=== PATIENT | male | born 1950 | race Caucasian/White ===

== ENCOUNTER 2017-08-10 19:17 | Observation (INO) | payer MEDICARE ==
[2017-08-10] MEDS ORDERED: Sodium Chloride 0.9% 1,000 ML IV ONE ×3 (19:46→22:37)
--- NOTE | 2017-08-10 20:00 | EDM.PDOC ---
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 after word he went to a [place] with his brother to plant [place] he remembers standing and being dizzy, then remembers lying on the ground BP 73/38 by EMS, then 90/50 by EMS after 1 liter, BP 106/56 here labs neg except for BUN 19, inc'd LFTs and ethanol 210, EKG with SR 90, no acute ST changes, no comparison no pain, no GARCIA, no f/c/d has not seen PCP Dr Egan in several years - Related Data Allergies Allergy/AdvReac Type Severity Reaction Status Date / Time No Known Allergies Allergy Verified 08/10/17 19:48 Home Meds: Home Meds NK [No Known Home Meds] 08/10/17 [History] ED ROS GENERAL - Review of Systems Review Of Systems: See Below Constitutional: Reports: Weakness HEENT: Reports: No Symptoms Respiratory: Reports: No Symptoms Cardiovascular: Reports: No Symptoms. Denies: Chest Pain Endocrine: Reports: No Symptoms GI/Abdominal: Reports: No Symptoms. Denies: Abdominal Pain, Nausea, Vomiting : Reports: No Symptoms Musculoskeletal: Reports: No Symptoms Skin: Reports: No Symptoms Neurological: Reports: Dizziness Psychiatric: Reports: No Symptoms Hematologic/Lymphatic: Reports: No Symptoms Immunologic: Reports: No Symptoms - Physical Exam Exam: See Below Exam Limited By: No Limitations General Appearance: Alert, WD/WN, No Apparent Distress Nose: Normal Inspection, Normal Mucosa, No Blood Throat/Mouth: Normal Inspection, Normal Lips, Normal Teeth, Normal Voice, No Airway Compromise Head Exam: Atraumatic, Normocephalic Neck: Normal Inspection, Supple, Non-Tender, Full Range of Motion Respiratory/Chest: No Respiratory Distress, Lungs Clear, Normal Breath Sounds, No Accessory Muscle Use, Chest Non-Tender Cardiovascular: Regular Rate, Rhythm, No Gallop, No Rub, Other (2/6 RON at LSB, quiet precordium) GI/Abdominal: Soft, Non-Tender, No Distention Neuro Exam (Abbreviated): Alert, Oriented, CN II-XII Intact, Normal Cognition, No Motor/Sensory Deficits Back Exam: Normal Inspection, Full Range of Motion, NT Extremities: Normal Inspection, Normal Range of Motion, Non-Tender, Normal Capillary Refill, Other (trace edema b/l) Psychiatric: Normal Affect, Normal Mood Skin Exam: Warm, Dry, Intact, Normal Color, No Rash Course - Vital Signs Last Recorded V/S: Last Vital Signs Temp 36.8 C 08/11/17 04:00 Pulse 88 08/11/17 04:00 Resp 18 08/11/17 04:00 BP 158/97 H 08/11/17 04:00 Pulse Ox 97 08/11/17 04:00 Orthostatic Blood Pressure [ 124/61 Standing] Orthostatic Blood Pressure [ 132/69 Sitting] Orthostatic Blood Pressure [ 121/54 Supine] - Orders/Labs/Meds Orders: Active Orders 24 hr Category Date Time Status UA W/MICROSCOPIC [URIN] Stat Lab 08/11/17 04:55 Ordered EKG 12 Lead [EK] Routine Ther 08/10/17 19:46 Ordered Medication Orders Acetaminophen (Tylenol) 650 mg PO Q4H PRN PRN Reason: Pain (Mild 1-3)/fever Dextrose/Sodium Chloride (Dextrose 5%-1/2 Ns) 1,000 mls @ 125 mls/hr IV ASDIRECTED [facility] Last Admin: 08/10/17 23:54 Dose: 125 mls/hr Ibuprofen (Motrin) 400 mg PO Q6H PRN PRN Reason: Pain (mild 1-3) Magnesium Hydroxide (Milk Of Magnesia) 30 ml PO Q12H PRN PRN Reason: Constipation Ondansetron HCl (Zofran) 4 mg IV Q4H PRN PRN Reason: Nausea/Vomiting Labs: Laboratory Tests 08/10/17 08/10/17 08/10/17 Range/Units 19:55 19:55 19:55 WBC 3.5 L (4.5-12.0) X10-3/uL RBC 4.60 (4.30-5.75) x10(6)uL Hgb 14.9 (11.5-15.5) g/dL Hct 44.1 (30.0-51.3) % MCV 95.9 (80-96) fL MCH 32.4 (27.7-33.6) pg MCHC 33.8 (32.2-35.4) g/dL RDW 13.8 (11.5-15.5) % Plt Count 83 L (125-369) X10(3)uL MPV 9.6 (7.4-10.4) fL Neut % (Auto) 59.4 (46-82) % Lymph % (Auto) 22.8 (13-37) % [place] % (Auto) 12.0 (4-12) % Eos % (Auto) 4 (1.0-5.0) % Baso % (Auto) 2 (0-2) % Neut # (Auto) 2.1 (1.6-8.3) # Lymph # (Auto) 0.8 (0.6-5.0) # [place] # (Auto) 0.4 (0.0-1.3) # Eos # (Auto) 0.1 (0.0-0.8) # Baso # (Auto) 0.1 (0.0-0.2) # Sodium 142 (135-145) mmol/L Potassium 3.9 (3.5-5.3) mmol/L Chloride 103 (100-110) mmol/L Carbon Dioxide 22 (21-32) mmol/L BUN 19 H (7-18) mg/dL Creatinine 1.0 (0.70-1.30) mg/dL Est Cr Clr Drug Dosing 82.12 mL/min Estimated GFR (MDRD) > 60 (>60) BUN/Creatinine Ratio 19.0 (9-20) Glucose 83 (80-116) mg/dL Calcium 8.8 (8.6-10.2) mg/dL Magnesium 1.8 (1.8-2.5) mg/dL Total Bilirubin 0.6 (0.1-1.3) mg/dL AST 117 H (5-25) IU/L ALT 96 H (12-36) U/L Alkaline Phosphatase 60 (56-112) IU/L Troponin I < 0.017 L (<0.017-0.056) ng/mL C-Reactive Protein 0.2 L (0.5-0.9) mg/dL Total Protein 6.9 (6.0-8.0) g/dL Albumin 3.9 (3.2-4.6) g/dL Globulin 3.0 g/dL Albumin/Globulin Ratio 1.3 TSH, Ultra Sensitive 4.43 H (0.36-3.74) IU/mL Ethyl Alcohol 0.21 H* (<0.03) % Meds: Medications Generic Name Dose Route Start Last Admin Trade Name Freq PRN Reason Stop Dose Admin Acetaminophen 650 mg 08/10/17 23:03 Tylenol PO Q4H PRN Pain (Mild 1-3)/fever Dextrose/Sodium Chloride 1,000 mls @ 125 mls/hr 08/10/17 23:15 08/10/17 23:54 Dextrose 5%-1/2 Ns IV 125 mls/hr ASDIRECTED [facility] Administration Ibuprofen 400 mg 08/10/17 23:03 Motrin PO Q6H PRN Pain (mild 1-3) Magnesium Hydroxide 30 ml 08/10/17 23:03 Milk Of Magnesia PO Q12H PRN Constipation Ondansetron HCl 4 mg 08/10/17 23:03 Zofran IV Q4H PRN Nausea/Vomiting Discontinued Medications Generic Name Dose Route Start Last Admin Trade Name Freq PRN Reason Stop Dose Admin Sodium Chloride 1,000 mls @ 999 mls/hr 08/10/17 19:46 08/10/17 20:06 Normal Saline IV 08/10/17 20:46 999 mls/hr .BOLUS ONE Administration Sodium Chloride 1,000 mls @ 999 mls/hr 08/10/17 20:49 08/10/17 21:20 Normal Saline IV 08/10/17 21:49 999 mls/hr .BOLUS ONE Administration Sodium Chloride 1,000 mls @ 999 mls/hr 08/10/17 22:37 08/10/17 22:30 Normal Saline IV 08/10/17 23:37 999 mls/hr .BOLUS ONE Administration - Re-Assessments/Exams Free Text/Narrative Re-Assessment/Exam: 08/10/17 22:39 pt with no urine after 3 liter NS, no urge to go not orthostatic after 2.5 liters, BP 124/57, still with inc'd pulse pressure inc'd LFTs c/w alcoholic hepatitis EtOH 210 inc'd BUN c/w dehydration is showing unifocal PVBs after 3 liters NS that were not there before EKG with borderline t wave abnormalities will r/o for GA and continue to monitor admit to hospital for further w/u Departure - Departure Time of Disposition: 22:45 Disposition: Refer to Observation Condition: Fair Clinical Impression: Vasovagal syncope, Hypotension, Dehydration, Elevated liver function tests, Acute alcohol intoxication, Poor nutrition, Abnormal EKG, Premature ventricular beat - Discharge Information - My Orders Last 24 Hours: My Active Orders 08/10/17 19:46 EKG 12 Lead [EK] Routine 08/11/17 04:55 UA W/MICROSCOPIC [URIN] Stat - Assessment/Plan Last 24 Hours: My Active Orders 08/10/17 19:46 EKG 12 Lead [EK] Routine 08/11/17 04:55 UA W/MICROSCOPIC [URIN] Stat
[2017-08-10] MEDS ORDERED: Ondansetron 4 MG/2 ML SDV IV PRN (23:03)
[2017-08-10] MEDS ORDERED: Ibuprofen 400 MG Tab PO PRN (23:03)
[2017-08-10] MEDS ORDERED: Magnesium Hydroxide 400 MG/5 ML Susp 30 ML Cup PO PRN (23:03)
[2017-08-10] MEDS ORDERED: Acetaminophen 325 MG Tab PO PRN (23:03)
[2017-08-10] MEDS: Dextrose 5%-0.45% NaCl 1,000 ML IV SCH (23:54)
[2017-08-11] MEDS: Dextrose 5%-0.45% NaCl 1,000 ML IV SCH (08:17)
--- NOTE | 2017-08-11 09:22 | PCM.HP ---
H&P History of Present Illness - General Date of Service: 08/11/17 Admit Problem/Dx: Admission Diagnosis/Problem Admission Diagnosis/Problem Syncope - History of Present Illness Initial Comments - Free Text/Narative: was admitted yesterday for syncope. He complains of no chest pain or headache or shortness of breath this morning. According to him he had eaten nor drank nothing yesterday except alcohol while helping his brother working into [employer]. He remembers getting up walking and then fell and was dizzy and does not remember much else. Upon arrival his blood pressure recorded by the EMS was 73 systolic he was admitted for observation and rehydration with the diagnosis of dehydration alcohol intoxication and syncope. He states that is previously healthy and has not seen his PCP Dr. Caryl Egan for several years Hasn't been taking prescription medications. He chews [place] but does not smoke. No recent surgeries. - Related Data Allergies/Adverse Reactions: Allergies Allergy/AdvReac Type Severity Reaction Status Date / Time No Known Allergies Allergy Verified 08/10/17 19:48 Home Medications: Home Meds NK [No Known Home Meds] 08/10/17 [History] Past Medical History - Past Health History Medical/Surgical History: Denies Medical/Surgical History Social & Family History - Family History Family Medical History: Noncontributory - Tobacco Use Smoking Status *Q: Never Smoker - Caffeine Use Caffeine Use: Reports: Coffee - Alcohol Use Days Per Week of Alcohol Use: 3 Number of Drinks Per Day: 6 Total Drinks Per Week: 18 Date of Last Drink: 08/11/17 - Recreational Drug Use Recreational Drug Use: No H&P Review of Systems - Review of Systems: Review Of Systems: ROS reveals no pertinent complaints other than HPI. Exam - Exam Exam: See Below - Vital Signs Vital Signs: Last Vital Signs Temp 98.5 F 08/11/17 07:57 Pulse 85 08/11/17 07:57 Resp 18 08/11/17 07:57 BP 107/56 L 08/11/17 07:57 Pulse Ox 97 08/11/17 07:57 Orthostatic Blood Pressure [ 124/61 Standing] Orthostatic Blood Pressure [ 132/69 Sitting] Orthostatic Blood Pressure [ 121/54 Supine] Weight: 110.818 kg - Exam General: Alert, Oriented, 4 HEENT: PERRLA, Hearing Intact, Mucosa Moist & [place], Nares Patent, Normal Nasal Septum, Posterior Pharynx Clear, Conjunctiva Clear, EOMI, EACs Clear, TMs Clear Neck: Supple, Trachea Midline, 2 Lungs: Clear to Auscultation, Normal Respiratory Effort Cardiovascular: Regular Rate, Regular Rhythm GI/Abdominal Exam: Normal Bowel Sounds, Soft, Non-Tender, No Organomegaly, No Distention, No Abnormal Bruit, No Mass, Pelvis Stable (Male) Exam: No Hernia, Normal Inspection, Normal Prostate, Circumcised Rectal (Males) Exam: Normal Exam, Normal Rectal Tone, Prostate Normal Back Exam: Normal Inspection, Full Range of Motion, NT Extremities: Normal Inspection, Normal Range of Motion, Non-Tender, No Pedal Edema, Normal Capillary Refill Skin: Warm, Dry, Intact Neurological: Cranial Nerves Intact, Reflexes Equal Bilateral Neuro Extensive - Mental Status: Alert, Oriented x3, Normal Mood/Affect, Normal Cognition Neuro Extensive - Motor, Sensory, Reflexes: CN II-XII Intact, Normal Gait, Normal Reflexes Psychiatric: Alert, Normal Affect, Normal Mood - Patient Data Lab Results Last 24 hrs: Laboratory Results - last 24 hr 08/10/17 08/10/17 08/10/17 Range/Units 19:55 19:55 19:55 WBC 3.5 L (4.5-12.0) X10-3/uL RBC 4.60 (4.30-5.75) x10(6)uL Hgb 14.9 (11.5-15.5) g/dL Hct 44.1 (30.0-51.3) % MCV 95.9 (80-96) fL MCH 32.4 (27.7-33.6) pg MCHC 33.8 (32.2-35.4) g/dL RDW 13.8 (11.5-15.5) % Plt Count 83 L (125-369) X10(3)uL MPV 9.6 (7.4-10.4) fL Neut % (Auto) 59.4 (46-82) % Lymph % (Auto) 22.8 (13-37) % [place] % (Auto) 12.0 (4-12) % Eos % (Auto) 4 (1.0-5.0) % Baso % (Auto) 2 (0-2) % Neut # (Auto) 2.1 (1.6-8.3) # Lymph # (Auto) 0.8 (0.6-5.0) # [place] # (Auto) 0.4 (0.0-1.3) # Eos # (Auto) 0.1 (0.0-0.8) # Baso # (Auto) 0.1 (0.0-0.2) # D-Dimer, Quantitative (0.0-0.59) mg/LFEU Sodium 142 (135-145) mmol/L Potassium 3.9 (3.5-5.3) mmol/L Chloride 103 (100-110) mmol/L Carbon Dioxide 22 (21-32) mmol/L BUN 19 H (7-18) mg/dL Creatinine 1.0 (0.70-1.30) mg/dL Est Cr Clr Drug Dosing 82.12 mL/min Estimated GFR (MDRD) > 60 (>60) BUN/Creatinine Ratio 19.0 (9-20) Glucose 83 (80-116) mg/dL Hemoglobin A1c (4.5-6.2) % Calcium 8.8 (8.6-10.2) mg/dL Magnesium 1.8 (1.8-2.5) mg/dL Total Bilirubin 0.6 (0.1-1.3) mg/dL AST 117 H (5-25) IU/L ALT 96 H (12-36) U/L Alkaline Phosphatase 60 (56-112) IU/L Troponin I < 0.017 L (<0.017-0.056) ng/mL C-Reactive Protein 0.2 L (0.5-0.9) mg/dL NT-Pro-B Natriuret Pep (<=125) pg/mL Total Protein 6.9 (6.0-8.0) g/dL Albumin 3.9 (3.2-4.6) g/dL Globulin 3.0 g/dL Albumin/Globulin Ratio 1.3 TSH, Ultra Sensitive 4.43 H (0.36-3.74) IU/mL Urine Color (YELLOW) Urine Appearance (CLEAR) Urine pH (5.0-6.5) Ur Specific [place] (1.010-1.025) Urine Protein (NEGATIVE) mg/dL Urine Glucose (UA) (NEGATIVE) mg/dL Urine Ketones (NEGATIVE) mg/dL Urine Occult Blood (NEGATIVE) Urine Nitrite (NEGATIVE) Urine Bilirubin (NEGATIVE) Urine Urobilinogen (NEGATIVE) mg/dL Ur Leukocyte Esterase (NEGATIVE) Urine RBC (0) Urine WBC (0) Ur Squamous Epith Cells (NS,R,O) Urine Bacteria (NS) Ethyl Alcohol 0.21 H* (<0.03) % 08/10/17 08/10/17 08/11/17 Range/Units 22:45 22:45 04:55 WBC (4.5-12.0) X10-3/uL RBC (4.30-5.75) x10(6)uL Hgb (11.5-15.5) g/dL Hct (30.0-51.3) % MCV (80-96) fL MCH (27.7-33.6) pg MCHC (32.2-35.4) g/dL RDW (11.5-15.5) % Plt Count (125-369) X10(3)uL MPV (7.4-10.4) fL Neut % (Auto) (46-82) % Lymph % (Auto) (13-37) % [place] % (Auto) (4-12) % Eos % (Auto) (1.0-5.0) % Baso % (Auto) (0-2) % Neut # (Auto) (1.6-8.3) # Lymph # (Auto) (0.6-5.0) # [place] # (Auto) (0.0-1.3) # Eos # (Auto) (0.0-0.8) # Baso # (Auto) (0.0-0.2) # D-Dimer, Quantitative 3.11 H (0.0-0.59) mg/LFEU Sodium (135-145) mmol/L Potassium (3.5-5.3) mmol/L Chloride (100-110) mmol/L Carbon Dioxide (21-32) mmol/L BUN (7-18) mg/dL Creatinine (0.70-1.30) mg/dL Est Cr Clr Drug Dosing mL/min Estimated GFR (MDRD) (>60) BUN/Creatinine Ratio (9-20) Glucose (80-116) mg/dL Hemoglobin A1c (4.5-6.2) % Calcium (8.6-10.2) mg/dL Magnesium (1.8-2.5) mg/dL Total Bilirubin (0.1-1.3) mg/dL AST (5-25) IU/L ALT (12-36) U/L Alkaline Phosphatase (56-112) IU/L Troponin I < 0.017 L (<0.017-0.056) ng/mL C-Reactive Protein (0.5-0.9) mg/dL NT-Pro-B Natriuret Pep (<=125) pg/mL Total Protein (6.0-8.0) g/dL Albumin (3.2-4.6) g/dL Globulin g/dL Albumin/Globulin Ratio TSH, Ultra Sensitive (0.36-3.74) IU/mL Urine Color Yellow (YELLOW) Urine Appearance Clear (CLEAR) Urine pH 5.0 (5.0-6.5) Ur Specific [place] 1.020 (1.010-1.025) Urine Protein Negative (NEGATIVE) mg/dL Urine Glucose (UA) Normal (NEGATIVE) mg/dL Urine Ketones 15 H (NEGATIVE) mg/dL Urine Occult Blood Negative (NEGATIVE) Urine Nitrite Negative (NEGATIVE) Urine Bilirubin Negative (NEGATIVE) Urine Urobilinogen Normal (NEGATIVE) mg/dL Ur Leukocyte Esterase Negative (NEGATIVE) Urine RBC 0-5 (0) Urine WBC 0-5 (0) Ur Squamous Epith Cells Not seen (NS,R,O) Urine Bacteria Rare H (NS) Ethyl Alcohol (<0.03) % 08/11/17 08/11/17 08/11/17 Range/Units 06:20 06:20 06:20 WBC (4.5-12.0) X10-3/uL RBC (4.30-5.75) x10(6)uL Hgb (11.5-15.5) g/dL Hct (30.0-51.3) % MCV (80-96) fL MCH (27.7-33.6) pg MCHC (32.2-35.4) g/dL RDW (11.5-15.5) % Plt Count (125-369) X10(3)uL MPV (7.4-10.4) fL Neut % (Auto) (46-82) % Lymph % (Auto) (13-37) % [place] % (Auto) (4-12) % Eos % (Auto) (1.0-5.0) % Baso % (Auto) (0-2) % Neut # (Auto) (1.6-8.3) # Lymph # (Auto) (0.6-5.0) # [place] # (Auto) (0.0-1.3) # Eos # (Auto) (0.0-0.8) # Baso # (Auto) (0.0-0.2) # D-Dimer, Quantitative (0.0-0.59) mg/LFEU Sodium 139 (135-145) mmol/L Potassium 4.0 (3.5-5.3) mmol/L Chloride 103 (100-110) mmol/L Carbon Dioxide 22 (21-32) mmol/L BUN 13 (7-18) mg/dL Creatinine 0.8 (0.70-1.30) mg/dL Est Cr Clr Drug Dosing 102.65 mL/min Estimated GFR (MDRD) > 60 (>60) BUN/Creatinine Ratio 16.3 (9-20) Glucose 102 (80-116) mg/dL Hemoglobin A1c 5.1 (4.5-6.2) % Calcium 8.1 L (8.6-10.2) mg/dL Magnesium (1.8-2.5) mg/dL Total Bilirubin (0.1-1.3) mg/dL AST (5-25) IU/L ALT (12-36) U/L Alkaline Phosphatase (56-112) IU/L Troponin I 0.185 H* (<0.017-0.056) ng/mL C-Reactive Protein (0.5-0.9) mg/dL NT-Pro-B Natriuret Pep 21 (<=125) pg/mL Total Protein (6.0-8.0) g/dL Albumin (3.2-4.6) g/dL Globulin g/dL Albumin/Globulin Ratio TSH, Ultra Sensitive (0.36-3.74) IU/mL Urine Color (YELLOW) Urine Appearance (CLEAR) Urine pH (5.0-6.5) Ur Specific [place] (1.010-1.025) Urine Protein (NEGATIVE) mg/dL Urine Glucose (UA) (NEGATIVE) mg/dL Urine Ketones (NEGATIVE) mg/dL Urine Occult Blood (NEGATIVE) Urine Nitrite (NEGATIVE) Urine Bilirubin (NEGATIVE) Urine Urobilinogen (NEGATIVE) mg/dL Ur Leukocyte Esterase (NEGATIVE) Urine RBC (0) Urine WBC (0) Ur Squamous Epith Cells (NS,R,O) Urine Bacteria (NS) Ethyl Alcohol (<0.03) % Result Diagrams: 08/10/17 19:55 08/11/17 06:20 EKG INTERPRETATION Rhythm: NSR Comparison: No Change - Problem List (1) Troponin I above reference range SNOMED Code(s): 726321262 ICD Code: R74.8 - ABNORMAL LEVELS OF OTHER SERUM ENZYMES Status: Acute Current Visit: Yes (2) Acute alcohol intoxication SNOMED Code(s): 84041693 ICD Code: F10.929 - ALCOHOL USE, UNSPECIFIED WITH INTOXICATION, UNSPECIFIED Status: Acute Current Visit: Yes Qualifiers: Complication of substance-induced condition: uncomplicated Qualified Code(s ): F10.929 - Alcohol use, unspecified with intoxication, unspecified (3) Dehydration SNOMED Code(s): 90991388 ICD Code: E86.0 - DEHYDRATION Status: Acute Current Visit: Yes (4) Hypotension SNOMED Code(s): 08219008 ICD Code: I95.9 - HYPOTENSION, UNSPECIFIED Status: Acute Current Visit: Yes (5) Vasovagal syncope SNOMED Code(s): 738114065 ICD Code: R55 - SYNCOPE AND COLLAPSE Status: Acute Current Visit: Yes Problem List Initiated/Reviewed/Updated: Yes Orders Last 24hrs: Active Orders 24 hr Category Date Time Status Admission Status [Patient Status] [ADT] Routine ADT 08/10/17 22:44 Active EKG Documentation Completion [RC] 08 Care 08/10/17 23:08 Active EKG Documentation Completion [RC] ASDIRECTED Care 08/11/17 09:13 Ordered Oxygen Therapy [RC] PRN Care 08/10/17 23:03 Active Telemetry Monitoring [Cardiac Monitoring] [RC] 08,16,00 Care 08/10/17 23:52 Active Vital Signs [RC] 00,04,08,12,16,20 Care 08/10/17 23:03 Active Regular Diet [DIET] Diet 08/11/17 Breakfast Active Chest 2V [CR] AM Exams 08/11/17 05:11 Ordered CREATINE KINASE,CK [CHEM] Routine Lab 08/11/17 09:15 Ordered TROPONIN I [CHEM] Routine Lab 08/11/17 09:15 Ordered UA W/MICROSCOPIC [URIN] Stat Lab 08/11/17 04:55 Ordered Acetaminophen [Tylenol] Med 08/10/17 23:03 Active 650 mg PO Q4H PRN Dextrose 5%-0.45% NaCl [Dextrose 5%-1/2 NS] 1,000 ml Med 08/10/17 23:15 Active IV ASDIRECTED Ibuprofen [Motrin] Med 08/10/17 23:03 Active 400 mg PO Q6H PRN Magnesium Hydroxide [Milk of Magnesia] Med 08/10/17 23:03 Active 30 ml PO Q12H PRN Ondansetron [Zofran] Med 08/10/17 23:03 Active 4 mg IV Q4H PRN Resuscitation Status Routine Resus Stat 08/10/17 23:03 Ordered EKG 12 Lead [EK] Routine Ther 08/10/17 19:46 Ordered EKG 12 Lead [EK] Routine Ther 08/10/17 23:07 Ordered EKG 12 Lead [EK] Routine Ther 08/11/17 09:12 Ordered Medication Orders Acetaminophen (Tylenol) 650 mg PO Q4H PRN PRN Reason: Pain (Mild 1-3)/fever Dextrose/Sodium Chloride (Dextrose 5%-1/2 Ns) 1,000 mls @ 125 mls/hr IV ASDIRECTED [facility] Last Admin: 08/11/17 08:17 Dose: 125 mls/hr Infusion: 08/11/17 07:54 Dose: 125 mls/hr Admin: 08/10/17 23:54 Dose: 125 mls/hr Ibuprofen (Motrin) 400 mg PO Q6H PRN PRN Reason: Pain (mild 1-3) Magnesium Hydroxide (Milk Of Magnesia) 30 ml PO Q12H PRN PRN Reason: Constipation Ondansetron HCl (Zofran) 4 mg IV Q4H PRN PRN Reason: Nausea/Vomiting Assessment/Plan Comment:: Patient could've occluded liters of normal saline overnight. He has no symptoms this morning and is anxious to go home. He specifically denies any chest pain or shortness of breath. However his troponin has shown marked elevation to .185. His EKG that have personally reviewed the no show any ST changes from yesterday. I repeated the troponin this morning and is higher, 0.26. I called [facility] and spoke to the hospitalist and will transfer the patient for further workup for coronary disease. The patient will be transferred by [facility] ambulance if he agrees.
--- NOTE | 2017-08-11 13:45 | DISCH ---
DISCHARGE DATE: 08/11/2017 REASON FOR ADMISSION: 1. Syncope. 2. Alcohol intoxication. DISCHARGE DIAGNOSES: 1. Elevated troponin. 2. Syncope. 3. Alcohol abuse and withdrawal symptoms. BRIEF HISTORY: A 67-year-old male [place] He was admitted for rehydration. He got 3 liters of fluids overnight. He has no symptoms. However, his troponin has been going upwards. Based on that, I discussed with the patient about transfer to [place] for an angiogram. The patient has accepted and will transfer to the hospitalist for consultation with Cardiology. I spent more than 35 minutes in the discharge of the patient. /[id number] [facility]
== END 2017-08-11 11:17 ==
LOC: FB.ED 19:17 → FB.MS 22:44 → UNDOADMOB 22:44
PROVIDERS: ADMIT Emergency Medicine; ATTEND Family Medicine
DX: F10.120 Alcohol abuse with intoxication, uncomplicated (principal); R74.8 Abnormal levels of other serum enzymes; E86.0 Dehydration; I95.9 Hypotension, unspecified; Y90.0 Blood alcohol level of less than 20 mg/100 ml
CPT/HCPCS: 36415; 80048; 80053; 81001; 82550; 83036; 83735; 83880; 84443; 84484; 85025; 85379; 86140; 93005; 96360; 96361; 99285; G0480; J7030